=== PATIENT | male | born 1985 | race African-American/Black ===

== ENCOUNTER 2017-02-12 10:11 | Emergency (ER) | payer OTHER ==
[~2017-02-12] VITALS: Ht 152.4 cm; Wt 89.0 kg
[2017-02-12 10:15] VITALS: Ht 152.4 cm; Wt 89.0 kg
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
[2017-02-12] MEDS ORDERED: ACETAMINOPHEN 325 MG TAB PO ONE (12:00)
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
[2017-02-12] MEDS ORDERED: IBUP-1542 PO (12:57)
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
== END 2017-02-12 13:26 | disposition home or self-care (01) ==
LOC: FTE 10:11
DX: S49.92XA Unspecified injury of left shoulder and upper arm, initial encounter (principal); V49.40XA Driver injured in collision with unspecified motor vehicles in traffic accident, initial encounter
CPT/HCPCS: 72040; 73030